=== PATIENT | female | born 1950 | race Caucasian/White ===

== ENCOUNTER → 2020-12-23 | Outpatient (CLI) | payer OTHER | END | disposition home or self-care (01) | LOC: SHCH 08:28 | PROVIDERS: ATTEND Student in an Organized Health Care Education/Training Program | DX: I36.1 Nonrheumatic tricuspid (valve) insufficiency (principal); I25.3 Aneurysm of heart; I51.7 Cardiomegaly; R55 Syncope and collapse; R60.9 Edema, unspecified | CPT/HCPCS: 93306; 93356 ==

== ENCOUNTER → 2024-10-16 | Outpatient (CLI) | payer OTHER ==
[~2024-10-16] MED LIST: APIX5TAB PO; ASPI-1197 PO; HYDR25TA PO; LISI20TA24 PO; TAMS-55 PO; mvi PO; sodium PO
--- NOTE | 2024-10-16 13:58 | HMCIMG ---
CT MAXILLOFACIAL W/O CONTRAST CLINICAL HISTORY: Other chronic sinusitis COMPARISON: None TECHNIQUE: Thin axial images were obtained through the facial bones/orbits without the use of intravenous contrast. Coronal and sagittal reformatted images were also submitted for interpretation. CONTRAST: mL of Isovue FINDINGS: NASAL REGION: The nasal bones, frontal processes of the maxilla, and lamina papyracea are intact. The ethmoid air cells are clear. The nasal septum is not deviated. and the nasal spine is intact. ORBITS: The orbital moore, floor, roof and rims are intact. The globes are symmetric and intact. There is no dislocation of the lens. Extraocular muscles are symmetric. Retro-ocular soft tissues are clear. ZYGOMA: The zygomatic arch, inferior and lateral orbital rim, and lateral and anterior moore of the maxilla are intact. MAXILLARY REGION: The alveolar, pterygoid and palatine processes are intact. Maxillary sinuses are clear. MANDIBLE: The symphysis, body and ramus are intact. Coronoid process and alveolar ridges are unremarkable in appearance. No dislocation or fracture of the condyles. SOFT TISSUES: There is no soft tissue swelling or subcutaneous emphysema. The included brain is unremarkable. Visualized portions of the cervical spine look unremarkable. IMPRESSION: No abnormalities identified.
== END | disposition home or self-care (01) ==
LOC: RAH 12:56
PROVIDERS: ATTEND Otolaryngology
DX: J34.2 Deviated nasal septum (principal); J32.8 Other chronic sinusitis; H69.83 Other specified disorders of Eustachian tube, bilateral
CPT/HCPCS: 70486

== ENCOUNTER → 2024-11-26 | Outpatient (CLI) | payer OTHER ==
[~2024-11-26] MED LIST changes: +GADOTERATE MEGLUMINE 10 MMOL/20 ML VIAL IV ONE
--- NOTE | 2024-11-26 15:31 | HMCIMG ---
EXAM: MR Abdomen with and without Intravenous Contrast. CLINICAL HISTORY: R93.2 Abnormal findings on diagnostic imaging of liver and biliary tract TECHNIQUE: Multisequence, multiplanar magnetic resonance images of the abdomen with and without intravenous contrast. Series acquired: 3 - COR SSFSE ARC - TR: 738.5 - TE: 92.5 - ET: 1.0 - Thk: 5.0 5 - AX SSFSE BH ARC - TR: 676.8 - TE: 87.6 - ET: 1.0 - Thk: 5.0 6 - AX 3D DUALECHO BH - TR: 6.5 - TE: 2.1 - ET: 1.0 - Thk: 4.4 7 - AX T2 FRFSE FATSAT ROLY ARC - TR: 29185.5 - TE: 106.5 - ET: 18.0 - Thk: 4.0 8 - AX DWI B=500 FB - TR: 3400.0 - TE: 59.0 - ET: 1.0 - Thk: 6.0 11 - G+ COR LAVA ARC - TR: 3.6 - TE: 1.7 - ET: 1.0 - Thk: 4.4 900 - AX LAVA DYN 5 PHASE - TR: 4.5 - TE: 1.9 - ET: 1.0 - Thk: 4.4 901 - PH1/AX LAVA DYN 5 PHASE - TR: 4.5 - TE: 1.9 - ET: 1.0 - Thk: 4.4 902 - PH2/AX LAVA DYN 5 PHASE - TR: 4.5 - TE: 1.9 - ET: 1.0 - Thk: 4.4 903 - PH3/AX LAVA DYN 5 PHASE - TR: 4.5 - TE: 1.9 - ET: 1.0 - Thk: 4.4 904 - PH4/AX LAVA DYN 5 PHASE - TR: 4.5 - TE: 1.9 - ET: 1.0 - Thk: 4.4 905 - PH5/AX LAVA DYN 5 PHASE - TR: 4.5 - TE: 1.9 - ET: 1.0 - Thk: 4.4 906 - FT: PH1/AX LAVA DYN 5 PHASE - TR: 4.5 - TE: 1.9 - ET: 1.0 - Thk: 20.0 CONTRAST: COMPARISON: None provided. FINDINGS: LOWER THORAX: No pleural effusion. LIVER: There is a hyperintense lesion in segment 02, measuring 2.9 x 3 cm. This lesion shows centripetal enhancement. There is a 2 mm probable cyst in segment 6 There is an enhancing lesion, 7 x 7 mm in segment 7 which is likely hemangioma. GALLBLADDER AND BILE DUCTS: No gallstone seen. No biliary ductal dilatation is evident. PANCREAS: Cystic lesion 3 x 3 mm within the pancreatic body SPLEEN: Unremarkable. ADRENALS: Unremarkable. KIDNEYS: The kidneys appear within normal limits. No hydronephrosis or mass evident. STOMACH AND BOWEL: Limited evaluation of the stomach and bowel demonstrates no acute process. LYMPH NODES: No lymphadenopathy is evident. VASCULATURE: No abdominal aortic aneurysm. IMPRESSION: No acute intra-abdominal abnormality. 2 larger hepatic lesions likely hemangiomas. 1 small lesion which is too small to characterize which may reflect a tiny cyst or hemangioma. Nonspecific cystic lesion within the pancreatic body likely a cystic neoplasm. Surveillance with MRI would be recommended /[employer]
== END | disposition home or self-care (01) ==
LOC: RAH 07:09
PROVIDERS: ATTEND Student in an Organized Health Care Education/Training Program
DX: R93.2 Abnormal findings on diagnostic imaging of liver and biliary tract (principal)
CPT/HCPCS: 74183; A9575